=== PATIENT | female | born 1955 ===

== ENCOUNTER 2024-11-17 06:30 | Day surgery (SDC) | payer OTHER, SELFPAY ==
[2024-11-09 08:44] LABS: Hematocrit 42.7 % (37.0-47.0); Hemoglobin 14.1 g/dL (12.0-16.0); Mean Corpuscular Hgb 29.4 pg (27.0-31.0); Mean Platelet Volume 9.7 fL (7.4-10.4); Platelet Count 332 10^3/uL (130-400); Red Cell Dist. Width 14.6 % (11.5-14.5); White Blood Cell Count 8.8 10^3/uL (4.8-10.8)
[2024-11-09 10:37] LABS: Blood Urea Nitrogen 26 mg/dl (7-17); Calcium 9.5 mg/dl (8.4-10.2); Carbon Dioxide 25 mmol/L (22-30); Chloride 107 mmol/L (98-107); Glucose 108 mg/dl (70-99); Potassium 4.9 mmol/L (3.5-5.1); Sodium 138 mmol/L (135-145); eGFR > 60.00
[2024-11-09 13:25] VITALS: BMI 36.2
[2024-11-17] VITALS (11 sets, daily range): BP systolic 106–157; BP diastolic 48–84; BMI 36.2
[2024-11-17] MEDS: Pyridium 200 MG PO (11:54)
[2024-11-17] MEDS: NORMOSOL-R/PLASMALYTE-A 1000 IV (11:55)
[2024-11-17] MEDS: HEPARIN 5000 UNITS SC (11:55)
== END 2024-11-17 19:50 | disposition home or self-care (01) ==
LOC: SDS 06:30
PROVIDERS: ATTENDING PHYSICIAN Obstetrics & Gynecology; FAMILY PHYSICIAN Family Medicine
DX: N81.3 Complete uterovaginal prolapse (principal); N95.8 Other specified menopausal and perimenopausal disorders; N39.3 Stress incontinence (female) (male); N36.41 Hypermobility of urethra; D25.9 Leiomyoma of uterus, unspecified; N84.0 Polyp of corpus uteri; N72 Inflammatory disease of cervix uteri; N83.8 Other noninflammatory disorders of ovary, fallopian tube and broad ligament; D27.0 Benign neoplasm of right ovary
CPT/HCPCS: 57425; 58571; 57250; 57288; 88305; 80048; 85027; 86850; 86900; 86901; 93005; C1713; C1763; C1771